=== PATIENT | female | born 1970 | race Caucasian/White ===

== ENCOUNTER → 2017-01-24 | Outpatient (CLI) | payer OTHER ==
[2016-03-05 15:26] VITALS: BP 115/73
[~2017-01-24] MED LIST: ACYC800T PO; ALPR0.5T6 PO; BISO1TAB44 PO; BUPR200T31 PO; CHOL10003 PO; CITA40TA5 PO; CLOB15CR TP; FEXO180T16 PO; HYDR-2766 PO; LIDO700A4 TP; MELO7.5T29 PO; ORPH100T PO; PANT40TA5 PO; TRAM1TAB4 PO
--- NOTE | 2017-01-25 10:42 | KCIC ---
DATE: 01/24/2017. EXAM: MAMMO ANGELY SCREENING BILATERAL. HISTORY: Routine mammographic screening. COMPARISON: 06/13/2015. This study was interpreted with the benefit of Computerized Aided Detection (CAD). FINDINGS: The breast parenchyma is heterogeneously dense, which could reduce sensitivity of mammography. Breast parenchyma level C.. There are small partially circumscribed, partially obscured nodular densities within the upper outer breast bilaterally. Some are stable but others appear new. These most likely represent multiple small cysts, now better seen with tomography. A few scattered calcifications appear benign. BI-RADS CATEGORY: 0 INCOMPLETE: NEEDS ADDITIONAL IMAGING EVALUATION AND/OR PRIOR MAMMOGRAMS FOR COMPARISON.. RECOMMENDED FOLLOW-UP: ADD ADDITIONAL IMAGING. Sonography of both upper outer breasts, and the left medial breast to assess what most likely represent multiple small cysts at tomographic baseline. PQRS compliance statement: Patient information was entered into a reminder system with a target due date (now) for the next mammogram. Mammography is a sensitive method for finding small breast cancers, but it does not detect them all and is not a substitute for careful clinical examination. A negative mammogram does not negate a clinically suspicious finding and should not result in delay in biopsying a clinically suspicious abnormality. "Our facility is accredited by the [employer] Mammography [employer]."
== END | disposition home or self-care (01) ==
LOC: KCIC MAMMO 17:29
PROVIDERS: ATTEND Obstetrics & Gynecology
DX: Z12.31 Encounter for screening mammogram for malignant neoplasm of breast (principal)
CPT/HCPCS: 77063; G0202; 77067

== ENCOUNTER → 2017-02-07 | Outpatient (CLI) | payer OTHER ==
[2016-03-05 15:26] VITALS: BP 115/73
--- NOTE | 2017-02-07 08:54 | RAD ---
Examination: Limited ultrasound bilateral breast History: History of call back for abnormal mammogram Comparison: 01/24/2017 mammogram and ultrasound of the left breast from 01/08/2016. Findings: There is a complex hypoechoic cystic structures identified in the right breast at 10:00 position 2.5 cm in the nipple measuring 7 mm and at 9:00 position 7 cm from the nipple measuring 7 mm probably complex cysts. There is a unchanged nonvascular complex appearing cystic structure 3 cm in the nipple at 4:00 position the left breast measuring 8 mm grossly similar to prior exam. Impression: Probably benign findings BI-RADS Category 3. Recommend bilateral breast mammogram in 6 months. Patient was entered into the mammographic target reminder system 6 months from today.
== END | disposition home or self-care (01) ==
LOC: KCIC US 07:52
PROVIDERS: ATTEND Obstetrics & Gynecology
DX: R92.8 Other abnormal and inconclusive findings on diagnostic imaging of breast (principal)
CPT/HCPCS: 76641

== ENCOUNTER → 2017-04-12 | Outpatient (CLI) | payer OTHER | END | disposition home or self-care (01) | LOC: KCIC US 07:57 | DX: K76.9 Liver disease, unspecified (principal) | CPT/HCPCS: 76705 ==

== ENCOUNTER → 2017-04-27 | Outpatient (CLI) | payer OTHER ==
[2017-04-27] MEDS: SINCALIDE 1.61 MCG in IV NORMAL SALINE 50ML 30 ML IV (14:01)
== END | disposition home or self-care (01) ==
LOC: NM 08:36
DX: R10.31 Right lower quadrant pain (principal); F17.200 Nicotine dependence, unspecified, uncomplicated; G40.909 Epilepsy, unspecified, not intractable, without status epilepticus; Z88.0 Allergy status to penicillin
CPT/HCPCS: 78226; 96374; 96375; A9537; J2805

== ENCOUNTER → 2018-12-11 | Outpatient (CLI) | payer OTHER ==
[2016-03-05 15:26] VITALS: BP 115/73
[~2018-12-11] MED LIST changes: -HYDR-2766 PO; +HYDR-2769 PO; -PANT40TA5 PO; +PANT40TA77 PO
--- NOTE | 2018-12-11 17:33 | KCIC ---
Bilateral diagnostic digital mammograms with 3-D tomosynthesis: Reason for examination: Follow-up nodules. Comparison is made to previous studies dated 01/24/2017 and 06/13/2015. Bilateral mammograms in CC and oblique projections were obtained with 2-D imaging and 3-D tomosynthesis imaging on a Siemens Inspiration unit and reviewed on the workstation. Interpretation was made with the benefit of CAD. The skin and nipples show no abnormalities. No abnormal axillary lymph nodes are seen. The breast parenchyma shows scattered fatty and fibroglandular density. (Breast density: Category B.) There continue to be small parenchymal densities bilaterally which are stable. There are no new dominant masses, suspicious calcifications or architectural distortion. Impression: Small nodular densities seen bilaterally which appear to be stable. Recommend routine mammographic follow-up. BI-RAD Category 2: Benign. "Our facility is accredited by the [employer] Mammography [employer]." This patient's information has been entered into a reminder system for the patient to be notified with the results of her examination and a target date for the next mammogram. Electronically signed by: Hermelinda Holcomb MD (12/11/2018 5:30 PM) [id number]
== END | disposition home or self-care (01) ==
LOC: KCIC MAMMO 09:45
PROVIDERS: ATTEND Physician Assistant
DX: Z12.31 Encounter for screening mammogram for malignant neoplasm of breast (principal); N64.89 Other specified disorders of breast
CPT/HCPCS: 77066; G0279; 77062

== ENCOUNTER → 2019-12-21 | Outpatient (CLI) | payer OTHER ==
[2016-03-05 15:26] VITALS: BP 115/73
--- NOTE | 2019-12-21 15:21 | KCIC ---
Bilateral digital screening mammograms with 3-D tomosynthesis: Reason for examination: Routine screening. Comparison is made to previous studies dated back to 06/06/2014. Bilateral mammograms in CC and oblique projections were obtained with 2-D imaging and 3-D tomosynthesis imaging on a Siemens Inspiration unit and reviewed on the workstation. Interpretation was made with the benefit of CAD. The skin and nipples show no abnormalities. No abnormal axillary lymph nodes are seen. The breast parenchyma is heterogeneously dense. (Breast density: Category C.) There continue to be small nodular parenchymal densities bilaterally which have remained stable. There are no new dominant masses, suspicious calcifications or architectural distortion. Impression: No evidence of malignancy. Recommend routine screening. Your patient's mammogram demonstrates that she has dense breast tissue (breast density category C or D), which could hide abnormalities, and if she has other risk factors for breast cancer that have been identified, she might benefit from supplemental screening tests that may be suggested by you as her ordering physician. Dense breast tissue, in and of itself, is a relatively common condition. Therefore, this information is not provided to cause undue concern, but rather to raise your awareness and to promote discussion with your patient regarding the presence of other risk factors, in addition to dense breast tissue. Your patient's mammography results will be sent to her. BI-RAD Category 2: Benign. "Our facility is accredited by the [employer] Mammography Program." This patient's information has been entered into a reminder system for the patient to be notified with the results of her examination and a target date for the next mammogram. Electronically signed by: Hermelinda Holcomb MD (12/21/2019 3:18 PM) [email or web address]
== END ==
LOC: KCIC MAMMO 12:19
PROVIDERS: ATTEND Obstetrics & Gynecology
DX: Z12.31 Encounter for screening mammogram for malignant neoplasm of breast (principal)
CPT/HCPCS: 77063; 77067

== ENCOUNTER → 2020-12-30 | Outpatient (CLI) | payer OTHER ==
[2016-03-05 15:26] VITALS: BP 115/73
[~2020-12-30] MED LIST changes: -ACYC800T PO; +ACYC800T88 PO; -CITA40TA5 PO; +CITA40TA6 PO
--- NOTE | 2020-12-30 13:19 | KCIC ---
Bilateral digital screening mammograms with 3-D tomosynthesis: Reason for examination: Routine screening. Comparison is made to previous studies dated back to 06/06/2014. Bilateral mammograms in CC and oblique projections were obtained with 2-D imaging and 3-D tomosynthes is imaging on a Siemens Inspiration unit and reviewed on the workstation. Interpretation was made wit h the benefit of CAD. An electronic device is present posteriorly at the right breast. The skin and nipples show no abnorma lities. No abnormal axillary lymph nodes are seen. The breast parenchyma shows scattered fatty and fi broglandular density. (Breast density: Category B.) There continued be small parenchymal densities wh ich are stable. There are no new dominant masses, suspicious calcifications or architectural distorti on. Impression: No evidence of malignancy. Recommend routine screening. BI-RAD Category 2: Benign. "Our facility is accredited by the [employer] Mammography [employer]." This patient's information has been entered into a reminder system for the patient to be notified wit h the results of her examination and a target date for the next mammogram. Electronically signed by: Hermelinda Holcomb MD (12/30/2020 1:16 PM) [email or web address]
== END ==
LOC: KCIC MAMMO 10:33
PROVIDERS: ATTEND Obstetrics & Gynecology
DX: Z12.31 Encounter for screening mammogram for malignant neoplasm of breast (principal)
CPT/HCPCS: 77063; 77067